=== PATIENT | female | born 1990 ===

== ENCOUNTER 2020-11-01 20:58 | Emergency (ER) | payer OTHER ==
[~2020-11-01] VITALS: Ht 154.9 cm; Wt 56.8 kg
[2020-11-01 21:43] VITALS: TEMP 97.4
[2020-11-01 23:40] VITALS: BP 118/70; PULSE 78
== END 2020-11-02 | disposition home or self-care (01) ==
LOC: COL.ER 20:58
DX: J45.901 Unspecified asthma with (acute) exacerbation (principal)